=== PATIENT | male | born 1990 | race African-American/Black ===

== ENCOUNTER 2017-12-24 21:28 | Emergency (ER) | payer OTHER ==
[~2017-12-24] VITALS: Ht 172.7 cm; Wt 68.2 kg
[2017-12-24] MEDS ORDERED: LIDOCAINE HCL 1% 10 ML VIAL INJ ONE (22:15)
[2017-12-24] MEDS ORDERED: PERTUSS(ACELL),DIPH,TET VAC/PF 0.5 ML VIAL IM ONE (23:00)
[2017-12-24] MEDS ORDERED: AMOX TR/POT CLAV 875 MG/125 MG TABLET PO ONE (23:00)
[2017-12-24 23:07] VITALS: BP 132/78
== END 2017-12-24 23:14 | disposition home or self-care (01) ==
LOC: EMS 21:29
DX: S01.411A Laceration without foreign body of right cheek and temporomandibular area, initial encounter (principal); F17.210 Nicotine dependence, cigarettes, uncomplicated; Y04.0XXA Assault by unarmed brawl or fight, initial encounter; Y93.89 Activity, other specified; Y92.89 Other specified places as the place of occurrence of the external cause; Y99.8 Other external cause status
CPT/HCPCS: 12011; 90471; 90715; 99283; J3490

== ENCOUNTER 2018-09-25 13:16 | Emergency (ER) | payer OTHER ==
[~2018-09-25] VITALS: Ht 172.7 cm; Wt 65.9 kg
[2018-09-25] MEDS ORDERED: IBUPROFEN 600 MG TABLET PO ONE (14:45)
[2018-09-25] MEDS ORDERED: LIDOCAINE 1% 10 ML VIAL INJ ONE (14:45)
[2018-09-25] MEDS ORDERED: PERTUSS(ACELL),DIPH,TET VAC/PF 0.5 ML VIAL IM ONE (14:45)
[2018-09-25 16:12] VITALS: BP 124/75
== END 2018-09-25 16:14 | disposition home or self-care (01) ==
LOC: EMS 13:17
DX: S61.210A Laceration without foreign body of right index finger without damage to nail, initial encounter (principal); F17.210 Nicotine dependence, cigarettes, uncomplicated; X99.1XXA Assault by knife, initial encounter; Y93.89 Activity, other specified; Y92.89 Other specified places as the place of occurrence of the external cause; Y99.8 Other external cause status
CPT/HCPCS: 90471; 90715; J3490